=== PATIENT | female | born 1980 | race Caucasian/White ===

== ENCOUNTER 2018-01-30 21:47 | Emergency (ER) | payer SELFPAY ==
[~2018-01-30] VITALS: Ht 167.6 cm; Wt 110.1 kg
[2018-01-30] MEDS ORDERED: IBUPROFEN 600 MG TABLET. PO ONE (22:30)
[2018-01-30] MEDS ORDERED: DIPHTH,PERTUSS(ACELL),TET TOX 0.5 ML DISP.SYRIN. VAX IM ONE (22:30)
[2018-01-30] MEDS ORDERED: HYDROcodone/APAP 5/325MG 1 TAB TABLET PO ONE (22:30)
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
[2018-01-30] MEDS ORDERED: TRAM-48 PO (23:31)
[2018-01-30] MEDS ORDERED: IBUP600T16 PO (23:31)
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
[2018-01-30] MEDS ORDERED: AMOX500C PO (23:34)
[2018-01-31 01:33] VITALS: BP 112/58
== END 2018-01-31 04:50 | disposition home or self-care (01) ==
LOC: ER 21:47 → EEVIPCON 21:47 → ER 01-31 04:50
DX: S02.31XA Fracture of orbital floor, right side, initial encounter for closed fracture (principal); S09.90XA Unspecified injury of head, initial encounter; M25.511 Pain in right shoulder; M54.2 Cervicalgia; Y04.0XXA Assault by unarmed brawl or fight, initial encounter; Y93.89 Activity, other specified; Y99.8 Other external cause status; Y92.89 Other specified places as the place of occurrence of the external cause
CPT/HCPCS: 70450; 70486; 72125; 99284-25